=== PATIENT | male | born 1965 | race Caucasian/White ===

== ENCOUNTER 2018-05-14 13:49 | Emergency (ER) | payer BC ==
[~2018-05-14] VITALS: Ht 167.6 cm; Wt 84.1 kg
[2018-05-14 13:52] VITALS: TEMP 36.8; Ht 167.6 cm; Wt 84.1 kg
[2018-05-14] MEDS ORDERED: CZR25 PO (14:22)
[2018-05-14] MEDS ORDERED: FEXO1TAB49 PO (14:22)
[2018-05-14] MEDS ORDERED: LIDOCAINE 1% BUFFERED INJ 20 ML VIAL INFIL ONE (15:00)
[2018-05-14] MEDS ORDERED: CEPHALEXIN 500MG HOME PACK 1 EA BTL PO ONE (16:00)
[2018-05-14 16:40] VITALS: BP 146/86; PULSE 72; O2SAT 97
--- NOTE | 2018-05-15 18:26 | EMERGENCY ROOM VISIT NOTE ---
ED Visit Note First contact with patient: 14:09 Chief Complaint: I cut my left forearm. History of Present Illness: Mr. Cervantes is a 53-year-old white male who ambulates into the ED accompanied by multiple family members complaining of a left forearm laceration. Patient reports he was helping his son with remodeling. He cut his forearm on a cutting wheel for pipes. This occurred approximately 1 hour prior to arrival at the hospital. He reports initially he was seen at a local urgent care center who clean the wound and with evaluation felt there was an associated laceration of the fascia and possibly a muscle of the forearm. He was bandaged and referred to the ED for further evaluation and care. Currently patient is complaining of a throbbing sensation in the medial aspect of the left forearm. He rates his discomfort 5/10. His pain is nonradiating. He reports his pain exacerbated when he was at the urgent care center and they were exploring his wound. He has not identified any alleviating factors related to the pain. He has not had any medication for pain prior to arrival at the hospital. He denies any associated symptoms including elbow pain, wrist pain, hand pain, finger weakness/numbness/tingling. Review of Systems: As noted above in history of present illness. Past Medical History: Hypertension. Current Medications: Losartan. Allergies to Medications: Patient denies. Social History: Patient is currently employed; he feels safe in his home environment; he denies tobacco use. Tetanus Immunization Status: Patient reports less than 10 years. Physical Examination: Vital Signs: Date Time Temp Pulse Resp B/P (MAP) Pulse Ox O2 Delivery O2 Flow Rate FiO2 05/14/18 16:40 72 18 146/86 97 05/14/18 13:52 36.8 75 18 165/98 98 Room Air GENERAL: 53-year-old male in mild distress due to pain, nontoxic-appearing, afebrile and hemodynamically stable. NEUROLOGICAL: Awake, alert and oriented to person, place and time. Answering questions appropriately and following commands. SKIN: Warm, dry and pink. Left Forearm: Over the medial aspect of the distal third of the forearm patient has a 2.8 cm full-thickness laceration. There is no active bleeding. LEFT FOREARM: Full-thickness laceration as noted above under SKIN. There is no gross bony deformity of the forearm. Patient has full range of motion in pronation and supination of the forearm, flexion, extension and radial and ulnar deviation of the wrist, flexion and extension of the DIP, PIP and MCP joints of the middle, ring and little fingers. The strength is equal bilaterally. He was able to distinguish light sensations to all dermatomes of the hand and fingers. I did explore his wound and it appeared the laceration did extend through the fascial layer of what I felt was the flexor carpi ulnaris and there did appear to be a small laceration of the muscle tissue itself. This laceration to the muscle tissue was only approximately 1/3-1/4 the size of the laceration to the surrounding muscle fascia. There was no bleeding of the muscle. And after extensive exploration there was no foreign bodies noted throughout the area. ED Course: Patient is assessed as noted above. Patient's medication list was reviewed. Wound Repair: Complexity: Advanced. Reason: 3 layer closure including fascia. Verbal consent was obtained after the risks and benefits were explained. The skin was prepped with betadine and a sterile field set. Wound edges of the wound was anesthetized with 4.6 ml buffered 1% lidocaine. The wound was explored for foreign bodies and none found. Copious irrigation was performed using sterile saline. With direct pressure the bleeding subsided. Debridement was not performed. The fascial layer was closed with 3 6-0 Vicryl simple interrupted sutures. The subcuticular level was closed with 3 6-0 Vicryl simple interrupted suture and the cutaneous layer of the wound was closed with 5-0 Vicryl with 6 simple interrupted sutures. Hemostasis and excellent approximation was achieved. Antibacterial ointment and a sterile dressing applied. No complications and the patient tolerated the procedure well. Patient was placed in a wrist lacer splint. Patient was educated about tonight's findings and instructed on his treatment plan; he verbalizes understanding and agreement with this plan. Clinical Impression: Laceration of the left forearm. Disposition: Patient discharged home in stable condition; prior to departure he was reassessed and subjectively reported pain and symptom-free. Plan: Comfort measures, splint use, wound care and signs of infection were discussed with the patient. Patient was prescribed Keflex 500 mg 4 times a day for 7 days for antibiotic coverage. Patient was encouraged to follow-up with personal physician or return emergency department in days and/or signs of infection. Patient was encouraged to follow-up with his PCP or return to the ED for any signs of infection, uncontrolled pain, hand weakness/numbness/tingling or any new/concerning symptoms.
== END 2018-05-14 16:42 | disposition home or self-care (01) ==
LOC: C.EDB 13:51 → C.EDD 16:42
DX: S51.812A Laceration without foreign body of left forearm, initial encounter (principal); W31.89XA Contact with other specified machinery, initial encounter; Y93.E9 Activity, other interior property and clothing maintenance; I10 Essential (primary) hypertension; Z79.899 Other long term (current) drug therapy